=== PATIENT | female | born 1990 | race Caucasian/White ===

== ENCOUNTER 2017-09-23 13:43 | Inpatient (IN) | payer BC, OTHER ==
[~2017-09-23] VITALS: Ht 160 cm; Wt 69.9 kg
[2017-09-23 16:31] LABS: *URINE HCG, QUAL NEGATIVE (NEGATIVE)
[2017-09-23 16:43] LABS: *AMPHETAMINE, URINE POSITIVE (NEGATIVE); *BARBITURATE, URINE NEGATIVE (NEGATIVE); *CANNABINOID, URINE NEGATIVE (NEGATIVE); *COCCAINE, URINE NEGATIVE (NEGATIVE); *OPIATE, URINE POSITIVE (NEGATIVE); *PHENCYCLIDINE SCREEN,URINE NEGATIVE (NEGATIVE)
[2017-09-23] MEDS ORDERED: BUPRENORPHINE HCL 2 MG TAB.SUBL SL PRN (17:00)
[2017-09-23] MEDS ORDERED: MAG HYDROX/AL HYDROX/SIMETH 30 ML LIQUID UDC PO PRN (17:00)
[2017-09-23] MEDS ORDERED: HYDROXYZINE PAMOATE 25 MG CAPSULE PO PRN (17:00)
[2017-09-23] MEDS ORDERED: DICYCLOMINE HCL 20 MG TABLET PO PRN (17:00)
[2017-09-23] MEDS ORDERED: ACETAMINOPHEN 325 MG TABLET PO PRN (17:00)
[2017-09-23] MEDS ORDERED: MIRALAX 17 GM POWD.PACK PO PRN (17:00)
[2017-09-23] MEDS ORDERED: ONDANSETRON ODT 4 MG TAB.RAPDIS SL PRN (17:00)
[2017-09-23] MEDS ORDERED: ONDANSETRON 4 MG/2 ML VIAL IM PRN (17:00)
[2017-09-23] MEDS ORDERED: MAGNESIUM HYDROXIDE 30 ML LIQUID UDC PO PRN (17:00)
[2017-09-23] MEDS ORDERED: CLONIDINE HCL 0.1 MG TABLET PO PRN (17:00)
[2017-09-23] MEDS ORDERED: LOPERAMIDE HCL 2 MG CAPSULE PO PRN ×2 (17:00)
[2017-09-23] MEDS ORDERED: LORAZEPAM 1 MG TABLET PO PRN (17:00)
--- NOTE | 2017-09-23 17:03 | NUR ---
Intake Assessment; Patient is a 26 year old female, presented to [facility] to detoxify from Heroin/Methamphetamine. Patient appears intoxicated upon admission, no s/s of withdrawals noted at this time. Patient AOX4, able to follow commands and is cooperative. Patient admits using Heroin/Meth today prior to admission. Patient was accompanied by her mother and relative. Educated patient regarding unit protocols and policies, verbalized understanding. Will continue with further assessment when patient is up on the floor.
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
[2017-09-23 18:01] LABS: BASOPHILS % (AUTO) 0.5 % (0.0-2.0); EOSINOPHILS # (AUTO) 0.2 K/uL (0.0-0.7); EOSINOPHILS % (AUTO) 2.1 % (0.0-7.0); HEMATOCRIT 29.8 % (31.2-41.9); HEMOGLOBIN 9.1 g/dL (10.9-14.3); LYMPHOCYTES # (AUTO) 2.4 K/uL (20.0-40.0); LYMPHOCYTES % (AUTO) 28.4 % (20.5-51.5); MEAN CORPUSCULAR HEMOGLOBIN 18.9 uug (24.7-32.8); MEAN CORPUSCULAR HGB CONC 31 g/dL (32.3-35.6); MEAN CORPUSCULAR VOLUME 61.9 fL (75.5-95.3); MONOCYTES # (AUTO) 0.5 K/uL (2.0-10.0); MONOCYTES % (AUTO) 5.6 % (0.0-11.0); NEUTROPHILS # (AUTO) 5.3 K/uL (1.8-8.9); NEUTROPHILS % (AUTO) 63.4 % (38.5-71.5); PLATELET COUNT (AUTO) 505 K/uL (179-408); RED BLOOD CELL COUNT(AUTO) 4.81 MIL/uL (3.63-4.92); WHITE BLOOD COUNT (AUTO) 8.3 K/uL (3.8-11.8)
[2017-09-23 18:16] LABS: ALANINE AMINOTRANSFERASE 25 U/L (14-59); ALKALINE PHOSPHATASE 92 U/L (50-136); ASPARTATE AMINOTRANSFERASE 17 U/L (15-37); BILIRUBIN,TOTAL 0.2 mg/dL (0.2-1.0); CARBON DIOXIDE 27 mmol/L (21-32); CHLORIDE 104 mmol/L (98-107); CREATININE 0.5 mg/dL (0.6-1.3); GLUCOSE 85 mg/dL (74-106); POTASSIUM 3.4 mmol/L (3.5-5.1); TOTAL PROTEIN, SERUM 8.1 g/dL (6.4-8.2); UREA NITROGEN, BLOOD 10 mg/dL (7-18)
[2017-09-23 18:26] LABS: THYROID STIMULATING HORMONE 1.223 mIU/mL (0.358-3.740)
[2017-09-23 18:32] LABS: ETHANOL < 3 MG/DL (0-0)
--- NOTE | 2017-09-23 18:35 | NUR ---
End of shift note; Patient is AOX4, newly admitted. Patient was educated regarding the importance of compliance to treatment. Patient is not showing s/s of withdrawals at this time. Instructed patient to report staff when she starts feeling s/s of withdrawals, patient verbalized understanding. All safety measures secured. Met all needs.
[2017-09-23 18:49] LABS: BAND % (MANUAL) 2 % (0-10); EOSINOPHILS % (MANUAL) 2 % (0-8); LYMPHOCYTES % (MANUAL) 26 % (20-40); MONOCYTES % (MANUAL) 4 % (2-10); NEUTROPHILS % (MANUAL) 66 % (42-75)
--- NOTE | 2017-09-23 19:30 | NUR ---
START OF SHIFT Received 26 year old female patient admitted on 09/23/17 for Heroin and Meth withdrawal. Pt is alert and oriented x4. She reports anxiety, restless legs, agitation, body aches, chills and difficulty sleeping. Per endorsement, she is scheduled to start a 5 day Subutex taper tomorrow. She did not receive or request PRN medications. Last COWS:3. Breathing is even and unlabored, safety measures in place. Will continue to monitor.
[2017-09-23 20:00] VITALS: BP 128/58
[2017-09-23] MEDS: METHOCARBAMOL 750 MG TABLET PO PRN (20:11)
--- NOTE | 2017-09-23 20:11 | NUR ---
PRN ROBAXIN Pt complains of body aches. PRN Robaxin administered as ordered. Breathing even and unlabored, safety measures in place. Will monitor.
[2017-09-23] MEDS ORDERED: POTASSIUM CHLORIDE 10 MEQ TAB.PRT.SR PO ONE (21:00)
[2017-09-23] MEDS ORDERED: LORAZEPAM 1 MG TABLET PO SCH (21:00)
--- NOTE | 2017-09-23 21:11 | NUR ---
PRN ROBAXIN REASSESSMENT PRN medication effective. Pt reports decrease in body aches. Breathing even and unlabored, safety measures in place. Will monitor.
[2017-09-23] MEDS: diphenhydrAMINE 50 MG CAPSULE PO PRN (21:51)
--- NOTE | 2017-09-23 21:51 | NUR ---
PRN BENADRYL Pt complains of difficulty sleeping. PRN Benadryl administered as ordered. Breathing even and unlabored, safety measures in place. Will monitor effectiveness.
--- NOTE | 2017-09-23 22:51 | NUR ---
PRN BENADRYL REASSESSMENT PRN medication effective. Pt is lying in bed with eyes closed noted to be asleep. Breathing is even and unlabored, safety measures in place. Will continue to monitor.
[2017-09-24] VITALS: BP 115/55
[2017-09-24 04:00] VITALS: BP 110/60
--- NOTE | 2017-09-24 06:57 | NUR ---
END OF SHIFT Pt is a 26 year old female patient admitted on 09/23/17 for Heroin and Meth withdrawal. She remains alert and oriented x4. She had complaints of anxiety, restless legs, agitation, body aches, chills and difficulty sleeping during the shift. At 2010 she received PRN Robaxin, at 2150 she received PRN Benadryl She also received a one time order for Ativan 2 mg, and Potassium 30 meQ. She is scheduled to start a 5 day Subutex taper today. She slept a total of 10hrs, Intake: 500mL, Void: x2, BM:0, COWS: 7 at 1999. Breathing is even and unlabored, safety measures in place. Endorsed to AM shift.
--- NOTE | 2017-09-24 07:29 | NUR ---
Start of shift note; Received report from night nurse. Patient is a 26 year old female admitted on 09/23/17 for Opiate withdrawals. Patient to start Subutex tape today. Patient is complaining of muscle aches, chills , diaphoresis, stomach cramps, anxiety. Educated patient regarding the importance of compliance to treatment and medication regime. Encouraged patient to participate in group therapy and activities as tolerated. All safety measures secured. Will continue to monitor patient.
[2017-09-24 08:00] VITALS: BP 140/89
[2017-09-24] MEDS ORDERED: TUBERCULIN,PURIF.PROT.DERIV. 5 TU/0.1 ML TEST ID ONE (09:00)
[2017-09-24] MEDS: BUPRENORPHINE HCL 2 MG TAB.SUBL SL SCH ×4 (09:26→20:21)
[2017-09-24 12:00] VITALS: BP 105/63
[2017-09-24 16:00] VITALS: BP 99/68
--- NOTE | 2017-09-24 18:46 | NUR ---
End of shift note; Patient is AOx4. Patient is complaining of diaphoresis, hot and cold flushes, muscle aches, nasal stuffiness, stomach cramps, fatigue. Patient is isolated and withdrawn. Encouraged patient to verbalize feelings. Patient remained compliant with treatment plan and medication regime. All safety measures secured. Met all needs.
--- NOTE | 2017-09-24 19:30 | NUR ---
START OF SHIFT Pt is a 26 year old female admitted on 09/23/17 for Opiate withdrawals. Pt started on Subutex taper today and is tolerating well.No A/R noted.Pt received in room,alert and oriented x 3; she is complaining of muscle aches and restlessness.No c/o pain noted. All safety measures are in place,with call light within reach. Will continue to monitor pt for safety and medicate per orders.
[2017-09-24 20:00] VITALS: BP 102/67
[2017-09-24] MEDS: METHOCARBAMOL 750 MG TABLET PO PRN (20:21)
--- NOTE | 2017-09-24 20:22 | NUR ---
PRN ROBAXIN GIVEN ORDERED FOR C/O MUSCLE ACHES.WILL MONITOR FOR EFFECTIVENESS.
--- NOTE | 2017-09-24 21:20 | NUR ---
PRN ASSESSMENT PT VERBALIZES A DECREASE IN MUSCLE ACHES.STATED " I FEEL BETTER".WILL CONTINUE TO MONITOR.
[2017-09-25] VITALS: BP 111/62
--- NOTE | 2017-09-25 | NUR ---
COWS DEFERRED PT IS SLEEPING COMFORTABLY IN HER BED.BREATHING IS EVEN AND NON LABORED.COWS DEFERRED D/T PT BEING IN DEEP SLEEP.
[2017-09-25] MEDS: METHOCARBAMOL 750 MG TABLET PO PRN (03:37)
--- NOTE | 2017-09-25 03:41 | NUR ---
PRN MEDS PT C/O ANXIETY,MYALGIA AND ABDOMINAL SPASMS.PRN VISTARIL,ROBAXIN AND BENTYL GIVEN ORDERED,RESPECTIVELY.WILL MONITOR FOR EFFECTIVENESS.
[2017-09-25 04:00] VITALS: BP 104/52
--- NOTE | 2017-09-25 04:40 | NUR ---
PRN MEDS ARE EFFECTIVE.PT STATES FEELING BETTER.SHE IS RESTING IN BED WITH EYES CLOSED.WILL CONTINUE TO MONITOR.
[2017-09-25 06:46] LABS: BASOPHILS # (AUTO) 0.1 K/uL (0.0-8.0); BASOPHILS % (AUTO) 0.6 % (0.0-2.0); EOSINOPHILS # (AUTO) 0.3 K/uL (0.0-0.7); EOSINOPHILS % (AUTO) 3.2 % (0.0-7.0); HEMATOCRIT 26.4 % (31.2-41.9); HEMOGLOBIN 8.2 g/dL (10.9-14.3); LYMPHOCYTES # (AUTO) 3.8 K/uL (20.0-40.0); MEAN CORPUSCULAR HEMOGLOBIN 18.9 uug (24.7-32.8); MEAN CORPUSCULAR HGB CONC 31 g/dL (32.3-35.6); MEAN CORPUSCULAR VOLUME 61.1 fL (75.5-95.3); MONOCYTES # (AUTO) 0.8 K/uL (2.0-10.0); MONOCYTES % (AUTO) 8.4 % (0.0-11.0); NEUTROPHILS # (AUTO) 4.2 K/uL (1.8-8.9); NEUTROPHILS % (AUTO) 45.8 % (38.5-71.5); PLATELET COUNT (AUTO) 424 K/uL (179-408); RED BLOOD CELL COUNT(AUTO) 4.32 MIL/uL (3.63-4.92); WHITE BLOOD COUNT (AUTO) 9.1 K/uL (3.8-11.8)
--- NOTE | 2017-09-25 06:49 | NUR ---
END OF SHIFT Pt is a 26 year old female admitted on 09/23/17 for Opiate withdrawals. Pt started on Subutex taper yesterday and is tolerating well.Today is day 2.No A/R noted.Pt is alert and oriented x 3; She was given PRN meds : Vistaril, clonidine and Robaxin x 2.She slept intermittently for 6 hrs; fluid intake was 1210 mls; voided x 3. All safety measures are in place,with call light within reach. Will endorse care to day shift nurse. Addendum: 09/25/17 at 0653 by OTILIO CHACKO RN LAST COWS=10 AT 0400.
--- NOTE | 2017-09-25 07:30 | NUR ---
Start of shift note; Received report from night nurse. Patient is a 26 year old female admitted on 09/23/17 for Opiate withdrawals. Patient to start Subutex tape today. Patient is complaining of muscle aches, chills , diaphoresis, stomach cramps, anxiety. Educated patient regarding the importance of compliance to treatment and medication regime. Encouraged patient to participate in group therapy and activities as tolerated. Encouraged patient to maintain adequate fluid and nutritional intake. LAB result to be relayed to MD. All safety measures secured. Will continue to monitor patient.
[2017-09-25 08:00] VITALS: BP 99/65
[2017-09-25 08:00] LABS: CARBON DIOXIDE 28 mmol/L (21-32); CHLORIDE 103 mmol/L (98-107); CREATININE 0.5 mg/dL (0.6-1.3); GLUCOSE 80 mg/dL (74-106); MAGNESIUM 2.1 mg/dL (1.8-2.4); PHOSPHOROUS 5.1 mg/dL (2.5-4.9); POTASSIUM 3.8 mmol/L (3.5-5.1); UREA NITROGEN, BLOOD 13 mg/dL (7-18)
[2017-09-25 08:09] LABS: IRON, SERUM 17 ug/dL (50-175)
[2017-09-25] MEDS: BUPRENORPHINE HCL 2 MG TAB.SUBL SL SCH ×3 (09:07→20:11)
--- NOTE | 2017-09-25 10:00 | NUR ---
MD communication; Notified MD regarding patient's LAB results. MD ordered ferrous sulfate scheduled for tomorrow.
[2017-09-25 12:00] VITALS: BP 103/64
[2017-09-25 12:07] LABS: HEPATITIS B SURFACE AG Negative (Negative)
--- NOTE | 2017-09-25 12:31 | NUR ---
PRN medication; Patient is complaining of neck pain rated 5/10. PRN Tylenol 650mg PO for pain. Will continue to monitor for effectiveness of medication.
--- NOTE | 2017-09-25 13:31 | NUR ---
Re-assessment; Patient denies pain at this time. PRN Tylenol noted to be effective.
[2017-09-25] MEDS ORDERED: POTASSIUM CHLORIDE 20 MEQ TAB.PRT.SR PO ONE (15:00)
[2017-09-25 16:00] VITALS: BP 122/67
--- NOTE | 2017-09-25 18:42 | NUR ---
End of shift note; Patient is AOx4. Patient is complaining of diaphoresis, hot and cold flushes, muscle aches, nasal stuffiness, stomach cramps, fatigue. Patient is isolated and withdrawn. Encouraged patient to verbalize feelings. Patient remained compliant with treatment plan and medication regime. All safety measures secured. Patient's last COWS score is 10 at 1600. Met all needs.
[2017-09-25 20:00] VITALS: BP 112/68
--- NOTE | 2017-09-25 20:00 | NUR ---
Start of Shift Pt is a 26 year old female admitted for Opiate withdrawal. Pt is placed on a 5 day Subutex taper. At time of assessment, pt presents in room, alert/oriented x4. Pt is noted to be unkempt, unwashed/uncombed hair, flushed, clothes thrown on the floor, hoarding food, spilled drinks, is anxious, irritable, worried, restless, clammy skin, stuffy nose, tearing eyes, reports muscle/body aches, tremors felt upon touch. COWS 14 at 1999, medications due. Safety measures in place, will continue to monitor.
[2017-09-25] MEDS: CLONIDINE HCL 0.1 MG TABLET PO SCH (20:10)
[2017-09-25] MEDS: GABAPENTIN 300 MG CAPSULE PO SCH (20:10)
[2017-09-25] MEDS: BACLOFEN 10 MG TABLET PO SCH (20:11)
[2017-09-26] VITALS: BP 103/58
[2017-09-26 04:00] VITALS: BP 106/68
--- NOTE | 2017-09-26 04:00 | NUR ---
COWS deferred d/t pt sleeping - to assess while pt is awake as ordered. BP 106/68, pulse 61, resp 16, Spo2 99% RA, temp 98.[address], will continue to monitor.
--- NOTE | 2017-09-26 07:02 | NUR ---
End of Shift Pt is a 26 year old female admitted for Opiate withdrawal. Pt is placed on a 5 day Subutex taper. During shift, At time of assessment, pt presented in room noted to be unkempt, unwashed/uncombed hair, flushed, clothes thrown on the floor, hoarding food, spilled drinks, was anxious, irritable, worried, restless, clammy skin, stuffy nose, tearing eyes, reports muscle/body aches, tremors felt upon touch scheduled taper medications administered, COWS 14 decreased to COWS 10. Pt encouraged to participate in activities. No PRN medications administered during shift. Pt slept for 9 hours, intake of 355 ml PO, void x1 and stool x0. Safety measures in place, Endorsed to day shift nurse.
--- NOTE | 2017-09-26 07:31 | NUR ---
START OF SHIFT Pt is a 26 yr old female, admitted on 09/23/17 for Opiate withdrawal and is on 5 day Subutex taper as ordered. Medication morris well. Received report from assistant shift supervisor nurse. No PRN's were given during the night. Pt slept for 9 hrs. Last COWS score was 10 at 0000. Pt is currently in bed sleeping with respirations even and unlabored. Skin is intact, warm and moist to touch. Pt's room is noted with multiple open food wrappers and bottles of water and soda on her bed side table and drawers. Pt is on fall precautions. Call light is within reach. Will continue to monitor.
[2017-09-26 08:00] VITALS: BP 98/56
[2017-09-26] MEDS ORDERED: BUPRENORPHINE HCL 2 MG TAB.SUBL SL SCH (09:00)
[2017-09-26] MEDS: BACLOFEN 10 MG TABLET PO SCH ×3 (09:14→21:00)
[2017-09-26] MEDS: CLONIDINE HCL 0.1 MG TABLET PO SCH ×2 (09:14→21:00)
[2017-09-26] MEDS: GABAPENTIN 300 MG CAPSULE PO SCH ×3 (09:14→21:00)
[2017-09-26] MEDS: FERROUS SULFATE 325 MG TABEC PO SCH ×2 (09:14→21:00)
[2017-09-26] MEDS: ASCORBIC ACID 250 MG TABLET PO SCH (09:14)
[2017-09-26] MEDS ORDERED: ASPIRIN/ACETAMINOPHEN/CAFFEINE TABLET PO PRN (11:30)
[2017-09-26] MEDS ORDERED: KETOROLAC TROMETHAMINE 30 MG INJ IM PRN (11:30)
[2017-09-26 12:00] VITALS: BP 117/65
[2017-09-26] MEDS ORDERED: DIPH50CA37 PO (14:50)
[2017-09-26] MEDS ORDERED: HYDR-3895 PO (14:50)
[2017-09-26] MEDS ORDERED: ASCO250T5 PO (14:50)
[2017-09-26] MEDS ORDERED: GABA-534 PO (14:50)
[2017-09-26] MEDS ORDERED: FERR325T28 PO (14:50)
[2017-09-26] MEDS ORDERED: IBUP-1955 PO (14:50)
[2017-09-26] MEDS ORDERED: METH-406 PO (14:50)
[2017-09-26] MEDS ORDERED: CLON0.1T14 PO (14:50)
[2017-09-26] MEDS ORDERED: DICY20TA28 PO (14:50)
[2017-09-26] MEDS: BUPRENORPHINE HCL 2 MG TAB.SUBL SL SCH ×2 (15:00→21:00)
--- NOTE | 2017-09-26 15:00 | NUR ---
MEDICATION HELD Subutex 2mg SL, Neurontin 300mg PO, and Baclofen 10mg PO scheduled at 1500 was held due to pt is too sedative. Dr. Hendrix was made aware.
[2017-09-26 16:00] VITALS: BP 99/52
--- NOTE | 2017-09-26 16:28 | NUR ---
COWS ASSESSMENT DEFERRED Pt is asleep at this time and is unable to be assessed for COWS score. Safety precautions observed. Call light is within reach. Will continue to monitor.
--- NOTE | 2017-09-26 19:00 | NUR ---
END OF SHIFT Pt is a 29 yr old male, AA&Ox4. Pt was admitted on 09/22/17 for ETOH withdrawal and is on 5 day Ativan taper as ordered. Medication morris well. Pt has been cooperative with medication regimen and plan of care. Pt attended group therapy. Pt c/o anxiety but is able to cope with anxiety level. Skin is intact, warm and moist to touch. No PRNs were given during the day. Last CIWA score was at 1600. Pt is on fall and seizure precautions. Call light is within reach. Endorsed to pharmacy intake coordinator nurse. Addendum: 09/27/17 at 1747 by ZEKE HOLLIS LVN ERROR IN DOCUMENTATION. WRONG PT
--- NOTE | 2017-09-26 19:01 | NUR ---
END OF SHIFT Pt is a 26 yr old female, AA&Ox3. Pt was admitted on 09/24/47 for Opiate withdrawal and is on 5 day Subutex taper. Pt has been noted with increase drowsiness and was in bed throughout the day. Subutex 2mg SL, Baclofen 10mg PO, and Neurontin 300mg PO was held at 1500 due to pt was too sedated. No PRN's were given. Last COWS score was 8 at 1200. Safety precautions observed. Call light is within reach.
--- NOTE | 2017-09-26 19:06 | NUR ---
Start of shift note Received report from day shift nurse. Pt is a 26 yo female, A+Ox4, presenting to [facility] for Opiate/Meth withdrawal. Pt noted to be anxious, agitated, restless, and having chills. Pt has HX of gastric bypass which will be monitored during shift. Pt is on 5 day Subutex taper, tolerated well. Respirations even and unlabored. Will continue to monitor.
[2017-09-26 20:10] VITALS: BP 104/61
[2017-09-27 00:57] VITALS: BP 101/65
[2017-09-27 04:19] VITALS: BP 108/69
--- NOTE | 2017-09-27 07:00 | NUR ---
End of shift note Pt was continuously noted to be anxious and agitated. Pt remained in room for entire shift. Pt was not given any PRN medications during shift. Pt slept for a total of 11 HRS. Last COWS: 8 @0400. Respirations even and unlabored. Will endorse to day shift nurse.
--- NOTE | 2017-09-27 07:10 | NUR ---
START OF SHIFT Pt is a 26 yr old female, admitted on 09/23/17 for Opiate withdrawal and is on 5 day Subutex taper as ordered. Medication morris well. Received report from hotel night auditor nurse. No PRN's were given during the night. All 2100 medication was held due to pt was too sedated. Pt slept for 11 hrs. Last COWS score was 8 at 0400. No PRN's were given. Pt is currently in bed sleeping with respirations even and unlabored. Skin is intact, warm and moist to touch. Pt's room is noted with multiple open food wrappers and bottles of water and soda on her bed side table and drawers. Pt is on fall precautions. Safety precautions observed. Call light is within reach. Will continue to monitor.
[2017-09-27 08:03] VITALS: BP 94/54
[2017-09-27] MEDS: BACLOFEN 10 MG TABLET PO SCH (08:46)
[2017-09-27] MEDS: BUPRENORPHINE HCL 2 MG TAB.SUBL SL SCH ×3 (08:46→20:23)
[2017-09-27] MEDS: CLONIDINE HCL 0.1 MG TABLET PO SCH ×3 (08:47→21:36)
[2017-09-27] MEDS: ASCORBIC ACID 250 MG TABLET PO SCH (08:47)
[2017-09-27] MEDS: IBUPROFEN 600 MG TABLET PO PRN ×2 (08:47→17:29)
[2017-09-27] MEDS: GABAPENTIN 300 MG CAPSULE PO SCH ×3 (08:47→20:22)
[2017-09-27] MEDS: FERROUS SULFATE 325 MG TABEC PO SCH ×2 (08:48→20:23)
--- NOTE | 2017-09-27 08:51 | NUR ---
PRN GIVEN Pt c/o tooth ache and generalized body aches 10. Facial grimacing is observed. Motrin 600mg PO PRN was administered. Medication morris well. Encouraged increase fluid intake. Will continue to monitor.
--- NOTE | 2017-09-27 09:51 | NUR ---
PRN RE-ASSESSMENT Motrin 600mg PO PRN was effective. Pt denies any pain at this time. Will continue to monitor.
[2017-09-27 12:00] VITALS: BP 91/50
--- NOTE | 2017-09-27 12:00 | NUR ---
COWS SCORE WAS DEFERRED Pt has been noted with increase drowsiness and has been in bed throughout the day. COWS assessment is deferred at this time due to unable to asses. Pt is noted with open food wrapper and crumbs on her bed. Safety precautions is noted. Will continue to monitor.
[2017-09-27] MEDS: BACLOFEN 20 MG TABLET PO SCH ×2 (15:00→20:22)
--- NOTE | 2017-09-27 15:38 | NUR ---
MEDICATION HELD Subutex 2mg SL, Neurontin 300mg PO, and Baclofen 20mg PO scheduled at 1500 was held due to pt is too sedated. Pt is nodding in and out and unable to wake up. Pt is noted with food crumbs on her bed and multiple open bottles on her bedside table. Safety precautions observed. Dr. Hendrix was made aware. Will continue to monitor.
[2017-09-27 16:00] VITALS: BP 101/54
[2017-09-27] MEDS: METHOCARBAMOL 750 MG TABLET PO PRN (17:29)
--- NOTE | 2017-09-27 17:29 | NUR ---
PRN GIVEN Pt c/o lower back pain 12/25. Motrin 600mg PO PRN and Robaxin 750mg PO PRN was given as ordered. Encouraged increase fluid intake. Will continue to monitor.
--- NOTE | 2017-09-27 19:02 | NUR ---
END OF SHIFT Pt is a 26 yr old female, AA&Ox3. Pt was admitted on 09/24/47 for Opiate withdrawal and is on 5 day Subutex taper. Pt has been noted with increase drowsiness and was in bed throughout the day. Subutex 2mg SL, Baclofen 20mg PO, and Neurontin 300mg PO was held at 1500 due to pt was too sedated. Pt c/o lower back pain in the morning and in the evening. Pt received Motrin 600mg PO PRN at 0847and 1729 and Robaxin 750mg PO PRN at 1729. Medication was effective. Last COWS score was 8 at 1200. Safety precautions observed. Call light is within reach.
--- NOTE | 2017-09-27 19:10 | NUR ---
Start of shift note Received report from day shift nurse. Pt is a 26 yo female, A+Ox4, presenting to [facility] for Opiate/Meth withdrawal. Pt noted with restlessness, anxiety, and agitation. Pt has HX of gastric bypass, which will be monitored during shift. Pt is on 5 day Subutex taper, tolerated well. Will continue to monitor.
[2017-09-27 20:20] VITALS: BP 100/71
[2017-09-27] MEDS: diphenhydrAMINE 50 MG CAPSULE PO PRN (21:29)
--- NOTE | 2017-09-27 21:29 | NUR ---
PRN Benadryl Pt c/o inability to sleep and requested for PRN Benadryl. Medication given and tolerated well. Will reassess within 1 HR. Will continue to monitor.
--- NOTE | 2017-09-27 22:25 | NUR ---
PRN Benadryl Reassessment Medication effective. Pt is resting well in bed. No s/s of ASE noted at this time. Respirations even and unlabored. Will continue to monitor.
[2017-09-28 00:39] VITALS: BP 96/64
[2017-09-28 04:04] VITALS: BP 93/62
--- NOTE | 2017-09-28 06:45 | NUR ---
End of shift note Pt was continuously noted to be anxious, restless, agitated, and having messy room. Pt remained in room for majority of shift except to get food from kitchen. Pt is on 5 day subutex taper, tolerated well. Pt was given PRN Riteshadryl @2128. Pt slept for a total of 8 HRS. Last COWS: 8 @0400. Respirations even and unlabored. Will endorse to day shift nurse.
--- NOTE | 2017-09-28 07:29 | NUR ---
START OF SHIFT Pt is a 26 yr old female, admitted on 09/23/17 for Opiate withdrawal and is on 5 day Subutex taper as ordered. Medication morris well. Received report from mini shifter nurse. Pt received Benadryl PRN during the night for sleep. Pt slept for 8 hrs. Last COWS score was 8 at 0400. Pt is currently in bed sleeping with respirations even and unlabored. Skin is intact, warm and moist to touch. Pt's room continues to be noted with multiple open food wrappers and bottles of water and soda on her bed side table and drawers. Pt is on fall precautions. Safety precautions observed. Call light is within reach. Will continue to monitor.
[2017-09-28 08:30] VITALS: BP 89/54
[2017-09-28] MEDS: GABAPENTIN 300 MG CAPSULE PO SCH ×3 (08:52→20:16)
[2017-09-28] MEDS: BACLOFEN 20 MG TABLET PO SCH ×3 (08:52→20:16)
[2017-09-28] MEDS: ASCORBIC ACID 250 MG TABLET PO SCH (08:52)
[2017-09-28] MEDS: FERROUS SULFATE 325 MG TABEC PO SCH ×2 (08:52→20:16)
[2017-09-28] MEDS: CLONIDINE HCL 0.1 MG TABLET PO SCH ×2 (08:54→21:00)
--- NOTE | 2017-09-28 08:55 | NUR ---
MEDICATION HELD Clonidine 0.1mg PO as scheduled at 0900 was held due to low BP of 89/54.
[2017-09-28] MEDS ORDERED: BUPRENORPHINE HCL 2 MG TAB.SUBL SL SCH (09:00)
[2017-09-28 12:00] VITALS: BP 116/56
[2017-09-28 16:00] VITALS: BP 107/69
--- NOTE | 2017-09-28 19:00 | NUR ---
END OF SHIFT Pt is a 26 yr old female, AA&Ox3. Pt was admitted on 09/24/47 for Opiate withdrawal and has completed a 5 day Subutex taper. Pt has been cooperative with medication. Pt attended group through the day. Clonidine 0.1mg PO as scheduled at 0900 was held due to low BP. Pt states of feeling anxiety, chills and muscle aching. Pt received Baclofen 20mg as scheduled routinely; medication was effective for muscle aches. Skin is intact, warm and moist to touch. Pt is to be discharged tomorrow on 09/29/17 to [facility]. Last COWS score was 6 at 1600. Safety precautions observed. Call light is within reach.
--- NOTE | 2017-09-28 19:10 | NUR ---
Start of shift note Received report from day shift nurse. Pt is a 26 yo female, A+Ox4, presenting to [facility] for Opiate/Meth withdrawal. Pt noted with restlessness, anxiety, messy room, and agitation. Pt has HX of gastric bypass which will be monitored during shift. Pt has completed 5 day Subutex taper, tolerated well. Respirations even and unlabored. Will continue to monitor. Addendum: 09/28/17 at 2336 by EITAN GANNON LVN Pt has completed 5 day Subutex taper, tolerated well, and is due for discharge tomorrow.
[2017-09-28 20:22] VITALS: BP 109/58
[2017-09-29 00:35] VITALS: BP 97/64
[2017-09-29 04:22] VITALS: BP 94/62
[2017-09-29] MEDS: METHOCARBAMOL 750 MG TABLET PO PRN (05:29)
--- NOTE | 2017-09-29 05:29 | NUR ---
PRN Robaxin Pt c/o muscle spasm 01/25 and requested for PRN Robaxin. Medication given and tolerated well. Will reassess within 1 HR. Will continue to monitor.
--- NOTE | 2017-09-29 06:22 | NUR ---
PRN Robaxin Reassessment Medication effective. Pt expresses reduction in muscle spasms to 4/10. No s/s of ASE noted at this time. Respirations even and unlabored. Will continue to monitor.
--- NOTE | 2017-09-29 06:52 | NUR ---
End of shift note Pt was continuously noted with agitation, anxiety, restlessness, messy room, and muscle pain. Pt remained in room for majority of shift except to get food from kitchen. Pt was given PRN Robaxin @0529. Pt slept for a total of 10 HRS. Last COWS: 5 @0400. Pt has completed 5 day Subutex taper, tolerated well, and is due for discharge today. Respirations even and unlabored. Will endorse to day shift nurse.
--- NOTE | 2017-09-29 07:30 | NUR ---
START OF SHIFT Pt 26 y/o female admitted for opiate withdrawal. Pt received in room on bed with eyes closed resting, but easily arousable to name. Perrla. Pt alert and oriented to name, place, and time. Respirations even and unlabored. Pt is scheduled to be discharged today to [facility]. It was reported that pt slept for 10 hours last night. Last reported cows=5 @2206. Pt completed a 5 day subutex taper. Bed on lowest position with side rails x2 up for safety. Call light within reach.
[2017-09-29 08:00] VITALS: BP 88/41
[2017-09-29 08:30] VITALS: BP 100/62
[2017-09-29] MEDS: BACLOFEN 20 MG TABLET PO SCH (08:43)
[2017-09-29] MEDS: FERROUS SULFATE 325 MG TABEC PO SCH (08:43)
[2017-09-29] MEDS: ASCORBIC ACID 250 MG TABLET PO SCH (08:43)
[2017-09-29] MEDS: GABAPENTIN 300 MG CAPSULE PO SCH (08:43)
--- NOTE | 2017-09-29 08:49 | NUR ---
PRN Pt states feels nauseated. Zofran odt prn per MD order given and tolerated well.
[2017-09-29 09:00] VITALS: BP 100/62
[2017-09-29] MEDS: CLONIDINE HCL 0.1 MG TABLET PO SCH (09:00)
--- NOTE | 2017-09-29 09:30 | NUR ---
PRN EVAL Pt denies any nausea at this time.
--- NOTE | 2017-09-29 09:33 | NUR ---
DISCHARGE Pt 26 y/o female admitted for etoh and hydrocodone withdrawal. Pt alert and oriented to name, place, and time. Perrla. Skin warm and dry to touch. Respirations even and unlabored. Pt slightly anxious about discharge. No belongings in cassette or cabinet noted. Also no home medications noted. Pt prescriptions and discharge papers packed in pt bag. Pt denies any SI/HI. Pt discharged to [facility] via private transport. No distress noted.
== END 2017-09-29 09:33 | disposition other institution (70) | DRG 895 ==
LOC: SRC 16:09
PROVIDERS: ADMIT Internal Medicine; ATTEND Internal Medicine
PROC: HZ2ZZZZ Detoxification Services for Substance Abuse Treatment (ICD-10-PCS; principal; 2017-09-23)
PROC: HZ31ZZZ Individual Counseling for Substance Abuse Treatment, Behavioral (ICD-10-PCS; 2017-09-26)
PROC: HZ41ZZZ Group Counseling for Substance Abuse Treatment, Behavioral (ICD-10-PCS; 2017-09-28)
DX: F11.23 Opioid dependence with withdrawal (principal); F15.20 Other stimulant dependence, uncomplicated; D50.9 Iron deficiency anemia, unspecified; E87.6 Hypokalemia; E66.9 Obesity, unspecified; Z81.1 Family history of alcohol abuse and dependence; Z68.27 Body mass index [BMI] 27.0-27.9, adult; Z98.84 Bariatric surgery status
CPT/HCPCS: 36415; 70030-TC; 80307; 80324; 80361; 82746; 83550; 83735; 84100; 84443; 84703; 85025; 86580; 86592; 86705; 86803; 87340; 87806; A4663; G0480; Q0162; Q0163